=== PATIENT | female | born 1990 | race African-American/Black ===

== ENCOUNTER 2017-11-23 21:25 | Emergency (ER) | payer MEDICAID, OTHER ==
[~2017-11-23 21:25] MED LIST: ACETAMINOPHEN500 M3 ORAL; AMLODIPINE BESYL5 MG ORAL; AUGMENTIN 500-1 EACH ORAL; AZITHROMYCIN250 MG ORAL; CIPROFLOXACIN500 M2 ORAL; IBUPROFEN600 MG ORAL; IBUPROFEN800 MG ORAL; KEFLEX500 MG ORAL; MACROBID100 MG ORAL; NKM; PRENATAL VITAM1 EAC4 PO; SILVADENE20 GM TP
--- NOTE | 2017-11-24 00:42 | Emergency Room Report ---
History of Present Illness General Chief Complaint: To Be Triaged Source: Patient Present Illness HPI Is a 26-year-old female with no significant past medical history. She checked in chief complaint abdominal pain. She left shortly afterward. She was in triage. I did not see the patient. Allergies: Coded Allergies: No Known Allergies (Unverified , 12/12/15) Patient History Past Medical History: see triage record, old chart reviewed Past Surgical History: other Pertinent Family History: none Social History: Denies: smoking Now: No Immunizations: other Reviewed Nursing Documentation: PMH: Agreed, PSxH: Agreed Nursing Documentation-PMH Hx Hypertension: Yes Medical Decision Making Diagnostic Impression: Primary Impression: Abdominal pain Disposition: LEFT W/OUT BEING SEEN Condition: Stable Referrals: [facility],REFERRING (PCP) TAM OLMEDO M.D. Nov 24, 2017 00:41
== END 2017-11-23 21:55 | disposition left against medical advice (07) ==
LOC: EMR 21:55
DX: R10.9 Unspecified abdominal pain (principal); Z53.21 Procedure and treatment not carried out due to patient leaving prior to being seen by health care provider
CPT/HCPCS: 99281